=== PATIENT | female | born 1960 | race Caucasian/White ===

== ENCOUNTER 2025-01-24 22:09 | Emergency (ER) | payer OTHER ==
[2025-01-24 22:16] VITALS: RESP 18; BMI 40.8
[2025-01-24 23:36] LABS: ABSOLUTE IMMATURE GRANULOCYTES 0.09 x10^3/uL (0.0-0.031); EOSINOPHIL % 1.1 % (0.7-5.8); EOSINOPHILS # 0.16 x10^3/uL (0.04-0.36); HEMATOCRIT 42.1 % (34.1-44.9); HEMOGLOBIN 13.8 g/dL (11.2-15.7); MCHC 32.8 g/dl (32.2-35.5); MEAN CELL VOLUME 90.3 fl (79.4-94.8); MEAN PLT VOLUME 11.5 fl (9.4-12.3); MONOCYTE # 0.57 x10^3/uL (0.24-0.86); MONOCYTE % 3.8 % (4.7-12.5); PLATELET COUNT 322 x10^3/uL (182-369); RDW 13.5 % (12.4-16.4); VENOUS BASE EXCESS -0.9 mmol/L (-2-2); VENOUS O2 SATURATION 97.3 % (70-80); VENOUS PCO2 33.1 mmHg (38-52); VENOUS PH 7.447 (7.310-7.410)
[2025-01-24 23:42] LABS: EPI CELLS 10 /uL (0-25.1); HYALINE CASTS 0 /uL (0-3.1); URINE APPEARANCE CLEAR; URINE BACTERIA 7 /uL (0-1359); URINE BILIRUBIN NEGATIVE (NEGATIVE); URINE COLOR YELLOW; URINE GLUCOSE (UA) NEGATIVE (NEGATIVE); URINE KETONE NEGATIVE (NEGATIVE); URINE LEUK ESTERASE NEGATIVE (NEGATIVE); URINE NITRITE NEGATIVE (NEGATIVE); URINE PROTEIN NEGATIVE (NEGATIVE); URINE RBC 19 /uL (0-23.9); URINE UROBILINOGEN 0.2 mg/dL (0.2-1.0); URINE WBC 8 /uL (0-25.8)
[2025-01-24 23:48] LABS: ACTIVATED PTT 31.3 SECONDS (25.2-36.5)
[2025-01-25 00:41] LABS: POTASSIUM 3.8 mmol/L (3.5-5.1)
[2025-01-25 00:44] LABS: CALCIUM 9.4 mg/dL (8.5-10.1)
[2025-01-25 00:45] LABS: ALBUMIN 4.2 g/dl (3.4-5.0); BLOOD UREA NITROGEN 17.2 mg/dL (7-18); MAGNESIUM 2.1 mg/dL (1.8-2.4)
[2025-01-25 00:48] LABS: CREATININE 1.1 mg/dL (0.55-1.3)
[2025-01-25 00:49] LABS: BILIRUBIN,TOTAL 0.2 mg/dL (0.2-1)
[2025-01-25] MEDS ORDERED: LISINOPRIL 20 MG TABLET ONE (01:35)
[2025-01-25] MEDS: LISINOPRIL 20 MG TABLET PO ONE (01:37)
[2025-01-25 01:40] LABS: HCV DIAGNOSTIC IN-HOUSE W/RFLX NON-REACTIVE (NONREACTIVE); HIV INTERPRETATION NEGATIVE (NEGATIVE)
[2025-01-25 01:49] VITALS: BP 161/96; TEMP 98.5
[2025-01-25 01:57] VITALS: PULSE 60
== END 2025-01-25 04:02 | disposition admitted as inpatient to this hospital (09) ==
LOC: JER 22:09
DX: E03.9 Hypothyroidism, unspecified (principal); K11.20 Sialoadenitis, unspecified; R53.83 Other fatigue; M79.602 Pain in left arm
CPT/HCPCS: 0241U-QW; 36415; 70491-TC; 71045-TC-FY; 80053; 81003; 82550; 82553; 82803; 83735; 84439; 84443; 84484; 85025; 85610; 85730; 86803; 86850; 86900; 86901; 87086; 87389; 93005; 93010; 99285-25